=== PATIENT | male | born 1995 | race Caucasian/White ===

== ENCOUNTER 2017-05-09 22:29 | Emergency (ER) | payer BC ==
[2017-05-09 22:35] VITALS: TEMP 98.4
[2017-05-09] MEDS ORDERED: IBUPROFEN 200 MG TAB PO ONE (22:45)
--- NOTE | 2017-05-09 22:47 | EDPHY ---
H & P Stated Complaint: left testicular pain Time Seen by Provider: 05/09/17 22:38 HPI/ROS: HPI The patient presents with left-sided testicular pain which started yesterday at noon. The pain is achy in nature and worse with palpation. It is increased upon walking and in certain positions. He notices mild swelling with no skin changes. He has no prior history of similar. Denies any direct trauma. He has not had any fevers or chills. He has not had any dysuria or hematuria. He does report new sexual partner. REVIEW OF SYSTEMS Constitutional: No fever, no chills. Eyes: No discharge. ENT: No sore throat. Cardiovascular: No chest pain, no palpitations. Respiratory: No cough, no shortness of breath. Gastrointestinal: No abdominal pain, no vomiting. Genitourinary: No hematuria. Musculoskeletal: No back pain. Skin: No rashes. Neurological: No headache. PMHx: Healthy Soc Hx: College student PHYSICAL General Appearance: Alert, no distress Eyes: Pupils equal and round no pallor or injection ENT, Mouth: Mucous membranes moist Respiratory: Breathing comfortably : Left testicle is tender in the posterior aspect, normal lie, no skin changes, no inguinal lymphadenopathy Neurological: A&O, moves all extremities Skin: Warm and dry, no rashes Musculoskeletal: Neck is supple non tender Extremities: symmetrical, full range of motion Psychiatric: Patient is oriented X 3, there is no agitation Source: Patient Exam Limitations: No limitations - Medical/Surgical History Hx Asthma: No Hx Chronic Respiratory Disease: No Hx Diabetes: No Hx Cardiac Disease: No Hx Renal Disease: No Hx Cirrhosis: No Hx Alcoholism: No Hx HIV/AIDS: No Hx Splenectomy or Spleen Trauma: No Other PMH: denies - Social History Smoking Status: Never smoked Constitutional: Initial Vital Signs Temperature (C) 36.9 C 05/09/17 22:33 Heart Rate 56 L 05/09/17 22:33 Blood Pressure 146/78 H 05/09/17 22:33 O2 Sat (%) 98 05/09/17 22:33 O2 Delivery Mode Room Air Allergies/Adverse Reactions: No Known Allergies Allergy (Unverified 05/09/17 22:33) Home Medications: Medication Instructions Recorded NK [No Known Home Meds] 05/09/17 Medical Decision Making - Diagnostics Imaging Results: Imaging Impressions Testicular Ultrasound 05/09/17 22:33 Impression: 1. Normal testes. No mass or evidence of orchitis or torsion. 2. No evidence of epididymitis. 3. Trace bilateral hydroceles. Findings discussed with Emergency Department physician, Beth Chacon MD at 05/09/2017 23:28. Differential Diagnosis: 22-year-old male, healthy presents with spontaneous left-sided testicular pain. On exam, he has mild tenderness and edema to the left posterior testicle. Differential diagnosis includes epididymitis, testicular torsion, scrotal cellulitis. In the emergency department, UA was performed and was unremarkable. Urine was sent for STD testing. Ultrasound was unremarkable. Given the absence of epididymitis on ultrasound and normal UA, I will not treat him for epididymitis clinically. We will await the results of his STD testing and treat based on that. He is in agreement with this plan. I have instructed him to take ibuprofen as needed. I have given him follow-up for the urologist in the next few days. He is in agreement with this plan.. - Data Points Laboratory Results: 05/09/17 05/09/17 23:00 23:00 Urine Color YELLOW Urine Appearance HAZY Urine pH 6.0 (5.0-7.5) Ur Specific [place] 1.023 (1.002-1.030) Urine Protein NEGATIVE (NEGATIVE) Urine Ketones NEGATIVE (NEGATIVE) Urine Blood NEGATIVE (NEGATIVE) Urine Nitrate NEGATIVE (NEGATIVE) Urine Bilirubin NEGATIVE (NEGATIVE) Urine Urobilinogen NEGATIVE EU EU (0.2-1.0) Ur Leukocyte Esterase NEGATIVE (NEGATIVE) Urine RBC 1-3 /hpf /hpf (0-3) Urine WBC 1-3 /hpf /hpf (0-3) Ur Epithelial Cells NONE SEEN /lpf /lpf (NONE-1+) Urine Mucus TRACE /lpf /lpf (NONE-1+) Urine Glucose NEGATIVE (NEGATIVE) C.trachomatis RNA (TMA) Pending N.gonorrhoeae RNA (TMA) Pending Medications Given: Discontinued Medications Ibuprofen (Motrin) 400 mg PO EDNOW ONE Stop: 05/09/17 22:46 Last Admin: 05/09/17 22:50 Dose: 400 mg Departure - Departure Disposition: Home, Routine, Self-Care Clinical Impression: Left testicular pain Condition: Good Instructions: Testicular Self-examination (ED), Scrotal Pain (ED) Additional Instructions: We will call you if any of your test results returned positive. Please make sure to take ibuprofen 400 mg every 6 hr as needed for pain. If your pain continues for the next 1-2 days, please call the urologist for a follow-up appointment. Referrals: [facility],. [Clinic] - As per Instructions Janelle Woodward MD [Medical Doctor] - As per Instructions
[2017-05-10 00:44] VITALS: BP 115/66; PULSE 59; RESP 16; O2SAT 95
[2017-05-11 11:55] LABS: GC AMPLIFICATION GENPROBE NEGATIVE (NEGATIVE)
== END 2017-05-10 00:45 | disposition home or self-care (01) ==
DX: N50.812 Left testicular pain (principal)